=== PATIENT | male | born 1970 | race Caucasian/White ===

== ENCOUNTER 2017-03-27 14:38 | Inpatient (IN) | payer MEDICAID ==
[2017-03-27 15:20] LABS: Hematocrit 41 % (42-52); Hemoglobin 13.9 g/dl (14.0-18.0); Mean Corpuscular HGB Conc 34 g/dl (31-36); Mean Corpuscular Hemoglobin 31 pg (27-31); Mean Corpuscular Volume 92 fL (80-94); Mean Platelet Volume 8 um3 (7.4-10.4); Red Blood Count 4.48 10^6/ul (4.0-5.4); Red Cell Distribution Width 14 % (10.5-15); White Blood Count 8.3 10^3/ul (3.5-10.8)
[2017-03-27 15:36] LABS: ALT 22 U/L (7-52); AST 19 U/L (13-39); Alkaline Phosphatase 48 U/L (34-104); Anion Gap 5 mmol/L (2-11); BUN/Creatinine Ratio 17.2 (8-20); Blood Urea Nitrogen 15 mg/dL (6-24); CO2 Carbon Dioxide 29 mmol/L (22-32); Calcium 8.8 mg/dL (8.6-10.3); Chloride 103 mmol/L (101-111); EGFR African American 120.4 (>60); EGFR Non-African American 93.7 (>60); Globulin 2.8 g/dL (2-4); Glucose 135 mg/dL (70-100); Potassium 3.8 mmol/L (3.5-5.0); Sodium 137 mmol/L (133-145); Total Protein 6.8 g/dL (6.4-8.9)
[2017-03-27 16:04] LABS: Benzodiazepine Urine Screen None Detected (None Detect)
[2017-03-27 16:09] LABS: Acetaminophen < 15 mcg/mL; Alcohol < 10 mg/dL (<10); Salicylate < 2.50 mg/dL (<30)
[2017-03-27 16:10] LABS: TSH (Thyroid Stimulating Horm) 0.73 mcIU/mL (0.34-5.60)
[2017-03-27] MEDS ORDERED: Nicotine Inhaler* 10 MG AMP ONE (18:41)
[2017-03-27] MEDS ORDERED: Mouth Piece, Nicotine* 1 EACH CARTRIDGE ONE (18:41)
[2017-03-27] MEDS ORDERED: Nicotine Inhaler* 10 MG AMP INH ONE (18:44)
[2017-03-27] MEDS: Mouth Piece, Nicotine* 1 EACH CARTRIDGE INH ONE (18:44)
--- NOTE | 2017-03-27 22:01 | ED ---
Danii Aldirdge Alfonso, scribed for Jay Sanders MD on 03/27/17 at 1544 . Psychiatric Complaint - HPI Summary HPI Summary: This patient is a 46 year old M BIBA 9[facility] to [facility] with a chief complaint of SI since 4 days ago. He states I am feeling suicidal and depressed. When asked about previous attempts, he reports drinking bleach one month ago. He states that this time he would jump of a little shell tribe. The patient rates the pain 0/10 in severity. Symptoms aggravated by nothing. Symptoms alleviated by nothing. Patient reports SI and depression. - History Of Current Complaint Chief Complaint: EDMentalHealth Time Seen by Provider: 03/27/17 14:40 Hx Obtained From: Patient Onset/Duration: Sudden Onset, Lasting Days - 4, Still Present Timing: Constant Character: Depressed Aggravating Factor(s): Nothing Alleviating Factor(s): Nothing Has Suicidal: Reports: Thoughts, With A Plan, Has Prior Attempt(s) - Allergies/Home Medications Allergies/Adverse Reactions: Allergies Allergy/AdvReac Type Severity Reaction Status Date / Time No Known Allergies Allergy Verified 03/27/17 21:14 PMH/Surg Hx/FS Hx/Imm Hx Sensory History: Denies: Hx Deafness Opthamlomology History: Denies: Hx Legally Blind Infectious Disease History: No Infectious Disease History: Denies: Traveled Outside the [place] in Last 30 Days - Family History Known Family History: Positive: Cardiac Disease, Diabetes - Social History Alcohol Use: None Substance Use Type: Reports: None Smoking Status (MU): Current Every Day Smoker Review of Systems Negative: Fever Psychological: Other - SI and depression All Other Systems Reviewed And Are Negative: Yes Physical Exam Triage Information Reviewed: Yes Vital Signs On Initial Exam: Initial Vitals Temp Pulse Resp BP Pulse Ox 98.8 F 104 14 140/95 98 03/27/17 15:23 03/27/17 15:23 03/27/17 15:23 03/27/17 15:23 03/27/17 15:23 Vital Signs Reviewed: Yes Appearance: Positive: Well-Appearing, No Pain Distress Skin: Positive: Warm, Skin Color Reflects Adequate Perfusion, Dry Head/Face: Positive: Normal Head/Face Inspection Eyes: Positive: Normal ENT: Positive: Normal ENT inspection Neck: Positive: Supple, Nontender Respiratory/Lung Sounds: Positive: Clear to Auscultation, Breath Sounds Present Cardiovascular: Positive: RRR Abdomen Description: Positive: Nontender, Soft Bowel Sounds: Positive: Present Musculoskeletal: Positive: Normal Neurological: Positive: Normal, Sensory/Motor Intact, Alert, Oriented to Person Place, Time Psychiatric: Positive: Other - Flat affect. Blunted. - Hai Coma Scale Coma Scale Total: 15 Diagnostics - Vital Signs Vital Signs Temp Pulse Resp BP Pulse Ox 03/27/17 15:23 98.8 F 104 14 140/95 98 - Laboratory Lab Results: Lab Results 03/27/17 03/27/17 Range/Units 15:05 15:05 WBC 8.3 (3.5-10.8) 10^3/ul RBC 4.48 (4.0-5.4) 10^6/ul Hgb 13.9 L (14.0-18.0) g/dl Hct 41 L (42-52) % MCV 92 (80-94) fL MCH 31 (27-31) pg MCHC 34 (31-36) g/dl RDW 14 (10.5-15) % Plt Count 252 (150-450) 10^3/ul MPV 8 (7.4-10.4) um3 Neut % (Auto) 71.2 (38-83) % Lymph % (Auto) 19.2 L (25-47) % Darke % (Auto) 7.1 (1-9) % Eos % (Auto) 1.5 (0-6) % Baso % (Auto) 1.0 (0-2) % Absolute Neuts (auto) 5.9 (1.5-7.7) 10^3/ul Absolute Lymphs (auto) 1.6 (1.0-4.8) 10^3/ul Absolute Monos (auto) 0.6 (0-0.8) 10^3/ul Absolute Eos (auto) 0.1 (0-0.6) 10^3/ul Absolute Basos (auto) 0.1 (0-0.2) 10^3/ul Absolute Nucleated RBC 0 10^3/ul Nucleated RBC % 0 Sodium 137 (133-145) mmol/L Potassium 3.8 (3.5-5.0) mmol/L Chloride 103 (101-111) mmol/L Carbon Dioxide 29 (22-32) mmol/L Anion Gap 5 (2-11) mmol/L BUN 15 (6-24) mg/dL Creatinine 0.87 (0.67-1.17) mg/dL Est GFR ( Amer) 120.4 (>60) Est GFR (Non-Af Amer) 93.7 (>60) BUN/Creatinine Ratio 17.2 (8-20) Glucose 135 H (70-100) mg/dL Calcium 8.8 (8.6-10.3) mg/dL Total Bilirubin 0.30 (0.2-1.0) mg/dL AST 19 (13-39) U/L ALT 22 (7-52) U/L Alkaline Phosphatase 48 (34-104) U/L Total Protein 6.8 (6.4-8.9) g/dL Albumin 4.0 (3.2-5.2) g/dL Globulin 2.8 (2-4) g/dL Albumin/Globulin Ratio 1.4 (1-3) TSH Pending Salicylates Pending Acetaminophen Pending Serum Alcohol Pending Result Diagrams: 03/27/17 15:05 03/27/17 15:05 Lab Statement: Any lab studies that have been ordered have been reviewed, and results considered in the medical decision making process. Course/Dx - Course Course Of Treatment: Mr. Davis presented C/O depression and SI. He says he would jump in a little shell tribe. He has been medically cleared and is awaiting [facility]. - Differential Dx/Clinical Impression Provider Diagnosis: Depression, Suicidal ideation Discharge - Discharge Plan Condition: Stable Disposition: HOME The documentation as recorded by the Danii goldstein Alfonso accurately reflects the service I personally performed and the decisions made by me, Jay Sanders MD.
[2017-03-28] MEDS ORDERED: Al Hydrox/Mg Hydrox/Simet LIQ* 30 ML UDC PO PRN (03:54)
[2017-03-28] MEDS ORDERED: Acetaminophen TAB* 325 MG PO PRN (03:54)
[2017-03-28] MEDS ORDERED: Mouth Piece, Nicotine* 1 EACH CARTRIDGE INH ONE (04:00)
[2017-03-28] MEDS: Vitamin THERAPEUTIC TAB PO SCH (08:35)
--- NOTE | 2017-03-28 11:24 | PN ---
MHU: Group Therapy Note - Service Type Service Type: [id number] Group Psychotherapy - Cognitive Behavioral Group Therapy ( CBT):Patient was attentive and participatory in CBT programming this morning, and remained in good behavioral control. Patient expressed positive insights regarding relevant treatment interventions and goals.
[2017-03-28] MEDS: Nicotine Inhaler* 10 MG AMP INH PRN (12:10)
[2017-03-28] MEDS: Mouth Piece, Nicotine* 1 EACH CARTRIDGE INH ONE (12:10)
--- NOTE | 2017-03-28 12:53 | HP ---
H&P (Free Text) History and Physical: HPI: ---- Patient is a 46yo male with PPHx significant for MDD, R, S and recent suicide attempt by drinking bleach 2 months ago. Patient was recently discharged from [facility] psychiatric unit 2 weeks ago for depression and SI. Patient reports this recent episode of worsening mood and SI started after his discharge from [facility]. Patient reports once discharged back to his apartment, he reports his mood dropped. Patient identifies his living situation as triggering his depression. Patient reports he lives in a dilapidated apartment building in [place] where many of the tenants there use drugs and will knock on doors to beg for money/ food. Patient reports he resides there under a [facility] [facility] residential program. Patient reports he's been informed the building will be condemned on 04/09/17. He reports he has been working with a [facility] case investigator, Joan Altamirano, to find a new residence put it has been a slow process. He reports not being able to stand living in the building. Patient reports coming to [place], [place] 1 week ago to stay with a friend. He hopes to move his [facility] housing to the [facility]. Patient reports dwelling on his housing situation yesterday led to SI with plan to "jump off a [place]", prompting him to present to the [facility] building for safety. He reports [facility] called ambulance and police. Patient presented to the [facility] on 9.41 status. On interview today, patient reports no depressive symptoms. He reports he has not taken the antidepressant started at [facility] in over a week. Today he reports his mood as "I feel great". He though is depressed in affect. He reports fair appetite and sleep since discharge from [facility] 2 weeks ago. He reports no issues with memory, energy, or motivation. Of note, patient's only sibling, his brother, committed suicide in 2016 due to his issues with Heroin addiction. Patient reports no use of illicit substances, outside of rare use of cannabis, since the of his brother. Patient reports he drinks alcohol, mainly beer, 1-3 x/week. He reports only 1-2 beers per sitting. Patient reports hx of 4 total suicide attempts. He reports his last attempt occurred in January 2017 by means of drinking bleach. Patient reports his stressor was his ongoing grief over his brother's suicide. Patient reports no symptoms of psychosis, nor were any elicited on interview. Past Psych Hx: Inpt - Patient reports a total of 4 psychiatric hospitalizations. He reports his first was around age 28yo. Outpt - Patient scheduled to start with MH providers at [facility]. He reports he has not had his first appointment yet. Psychotropic med hx - Patient can not recall any antidepressant name, nor can he recall his discharge meds from [facility] in [place], [place]. Suicide attempt Hx / SIB Hx: -Patient reports hx of 4 total suicide attempts. He reports his last attempt occurred in January 2017 by means of drinking bleach. Patient reports his stressor was his ongoing grief over his brother's suicide. Trauma Hx: -Patient reports hx of significant bullying in school due to his intellectual disability. -Patient denies hx of physical or sexual abuse. Substance Hx: -Patient reports he drinks alcohol, mainly beer, 1-3 x/week. He reports only 1- 2 beers per sitting. -Patient reports use of Cannabis infrequently. He reports use 1-2 x/month. He reports his last use was 3 weeks ago. -Patient reports he has not used any other illicit substance since the of his brother by suicide. Patient reports his brother killed himself because of his addiction. He stated, "my brother is in heaven looking down at me, what would he think if I used drugs". Medical Hx: DENIES Allergies: --------- NKDA Family Hx: -Patient reports his brother dealt with IV Heroin addiction for years prior to his suicide. -Patient reports his brother is the only family member who has committed suicide. Social Hx: --------- -Patient born and raised in [place], [place] -Raised by mom and step-dad -Patient close with bio-dad who lives in [place], [place] -1 full sibling, a brother who committed suicide in 2016 due to Heroin addiction Patient reports he was very close to his brother -HLOE: 10th grade -Reports being in Special Education classes in school -Patient is currently unemployed -Patient reports longest job was with [employer]. He and his co-workers all laid off in 2009. -Patient lives in apartment in [place] under [employer] program. He reports the apartment building will be condemned in 04/2017. He does not want to return due to the rampant drug use of his neighbors. -Patient denies access to firearms -Patient denies having stores of old Rx pills LABS: ----- Laboratory Tests 03/27/17 03/27/17 03/27/17 15:05 15:05 15:17 WBC 8.3 RBC 4.48 Hgb 13.9 L Hct 41 L MCV 92 MCH 31 MCHC 34 RDW 14 Plt Count 252 MPV 8 Neut % (Auto) 71.2 Lymph % (Auto) 19.2 L [place] % (Auto) 7.1 Eos % (Auto) 1.5 Baso % (Auto) 1.0 Absolute Neuts (auto) 5.9 Absolute Lymphs (auto) 1.6 Absolute Monos (auto) 0.6 Absolute Eos (auto) 0.1 Absolute Basos (auto) 0.1 Absolute Nucleated RBC 0 Nucleated RBC % 0 Sodium 137 Potassium 3.8 Chloride 103 Carbon Dioxide 29 Anion Gap 5 BUN 15 Creatinine 0.87 Est GFR ( Amer) 120.4 Est GFR (Non-Af Amer) 93.7 BUN/Creatinine Ratio 17.2 Glucose 135 H Calcium 8.8 Total Bilirubin 0.30 AST 19 ALT 22 Alkaline Phosphatase 48 Total Protein 6.8 Albumin 4.0 Globulin 2.8 Albumin/Globulin Ratio 1.4 TSH 0.73 Salicylates < 2.50 Urine Opiates Screen None detected Acetaminophen < 15 Ur Barbiturates Screen None detected Ur Phencyclidine Scrn None detected Ur Amphetamines Screen None detected U Benzodiazepines Scrn None detected Urine Cocaine Screen None detected U Cannabinoids Screen Presumptive positive H Serum Alcohol < 10 PHYSICAL EXAM: GEN - in NAD, moderate build male, looks older than stated age HEENT - NC/AT, EOEMI, no lesions or discharge noted, conjunctivae clear NECK - supple, no JVD, no LAD, CARDIAC - S1/S2, no discernable murmurs ABD - (+) BS x 4 quad, non-tender EXT - no edema, no lesions MUSCULOSKEL - 5/5 muscle strength in all extremities SKIN - intact, no lesions NEURO - CN 2-12, steady gait MSE: ----- Appearance - moderate build male, fair hygeine, in NAD, looks older than stated age Behavior - calm, cooperative Speech - RVR, prosody wnl Eye Contact - good Mood - "I'm okay" Affect - depressed TP - linear and GD TC - focused on discharge Perception - no signs of psychosis noted or reported Orientation - A&Ox3 Cognition - intact Insight - poor Judgement - poor SI / HI - SI w/plan present on admission, currently denies both ASSESSMENT: 1. MDD, R, S w/o PFs 2. Intellectual developmental d/o PLAN: ------ 1. Continue admission to [facility] for safety and symptom mx. 2. Will start Celexa 20mg po qdaily for mood symptoms. 3. Continue compiling collateral information from family and outpt MH providers. 4. Patient to participate in milieu activities and groups.
[2017-03-29] MEDS: Citalopram TAB* 20 MG PO SCH (09:56)
[2017-03-29] MEDS: Vitamin THERAPEUTIC TAB PO SCH (09:57)
--- NOTE | 2017-03-29 10:20 | PN ---
Subjective - Subjective Service Type: 83662 Hosp care 15 min low complexity Subjective: Patient noted to be visible in the milieu, social and participating in groups. He reports his mood as "fine". He has been med compliant and denies med s/e's. Patient reports good sleep and appetite. Patient is linear in TP and requests discharge. Patient reports no SI/HI and AH/VH. Objective - Appearance Appearance: Well Developed/Nourished Dysmorphic Features: No Hygiene: Normal Grooming: Fairly Well Kept - Behavior Psychomotor Activities: Normal Exhibits Abnormal Movement: No - Attitude and Relatedness Attitude and Relatedness: Cooperative Eye Contact: Fair - Speech Quality: Unpressured Latencies: Normal Quantity: Appropriate - Mood Patient's Decription of Mood: "Fine" - Affect Observed Affect: Fair Affect Consistent with: Euthymia - Thought Process Patient's Thought Process: Coherent Thought Content: No Passive Wish, No Suicidal Planning, No Homicidal Ideation, No Paranoid Ideation - Sensorium Experiencing Hallucinations: No, Sensorium is Clear Type of Hallucinations: Visual: No, Auditory: No, Command: No - Level of Consciousness Level of Consciousness: Alert Orientation: Yes Intact, Yes Orientated to Time, Yes Orientated to Place, Yes Orientated to Person - Impulse Control Impulse Control: Intact - Insight and Judgement Insight and Judgement: Fair - Group Participation Particating in Group Activities: Yes - Medication Management Medication Management Adherence: Yes Assessment - Assessment Merits Inpatient Hospitalization: For Immediate Safety, For Stabilization Inpatient DSM-IV Dx: ASSESSMENT: . 1. MDD, R, S w/o PFs. 2. Intellectual developmental d/o Plan - Plan Treatment Plan: Name: NIRALI ALEX Birthdate: 1970 [id number] PLAN: ------ 1. Continue admission to [facility] for safety and symptom mx. 2. Continue Celexa 20mg po qdaily for mood symptoms. 3. Collateral information obtained from outpt MH providers. 4. Patient has signed LILIAM for [facility], the [facility], and his father Michael Alex #[phone]. 5. Patient to participate in milieu activities and groups. Continued Medication Management: Start Medication Medications: Current Medications Acetaminophen (Tylenol Tab*) 650 mg PO Q4H PRN PRN Reason: PAIN or TEMP > 101 F Al Hydrox/Mg Hydrox/Simethicone (Maalox Plus*) 30 ml PO Q4H PRN PRN Reason: INDIGESTION Citalopram Hydrobromide (Celexa Tab*) 20 mg PO DAILY [facility] Last Admin: 03/29/17 09:56 Dose: 20 mg Multivitamins (Theragran Tab*) 1 tab PO DAILY [facility] Last Admin: 03/29/17 09:57 Dose: 1 tab Nicotine (Nicotine Inhaler*) 10 mg INH Q2H PRN PRN Reason: CRAVING Last Admin: 03/28/17 12:10 Dose: 10 mg - Discharge Plan Outpatient Program: [facility]
--- NOTE | 2017-03-29 11:30 | PN ---
MHU: Group Therapy Note - Service Type Service Type: [id number] Group Psychotherapy - Cognitive Behavioral Group Therapy ( CBT):Patient was attentive and participatory in CBT programming this morning, and remained in good behavioral control. Patient expressed positive insights regarding relevant treatment interventions and goals.
[2017-03-30] MEDS: Citalopram TAB* 20 MG PO SCH (08:42)
[2017-03-30] MEDS: Vitamin THERAPEUTIC TAB PO SCH (08:43)
--- NOTE | 2017-03-30 15:01 | PN ---
Subjective - Subjective Service Type: 73058 Hosp care 15 min low complexity Subjective: Patient noted again today to be visible in the milieu, social and participating in groups. He reports his mood today as "good". He has been med compliant and denies med s/e's. Patient reports good sleep and appetite. Patient is linear in TP and again today requests discharge. Patient reports plan to return to his friends home. He reports he has removed all his belongings from his apartment in [place] prior to the building being condemned on 04/09/17. Patient reports desire to return to the [facility]' residence. He reports he will continue pursing new DSS placement with his oupt DSS case hardener. Patient reports no SI/HI and AH /VH. Objective - Appearance Appearance: Well Developed/Nourished Dysmorphic Features: No Hygiene: Normal Grooming: Well Kept - Behavior Psychomotor Activities: Normal Exhibits Abnormal Movement: No - Attitude and Relatedness Attitude and Relatedness: Cooperative Eye Contact: Good - Speech Quality: Unpressured Latencies: Normal Quantity: Appropriate - Mood Patient's Decription of Mood: "Good" - Affect Observed Affect: Fair Affect Consistent with: Euthymia - Thought Process Patient's Thought Process: Coherent Thought Content: No Passive Wish, No Suicidal Planning, No Homicidal Ideation, No Paranoid Ideation - Sensorium Experiencing Hallucinations: No, Sensorium is Clear Type of Hallucinations: Visual: No, Auditory: No, Command: No - Level of Consciousness Level of Consciousness: Alert Orientation: Yes Intact, Yes Orientated to Time, Yes Orientated to Place, Yes Orientated to Person - Impulse Control Impulse Control: Intact - Insight and Judgement Insight and Judgement: Fair - Group Participation Particating in Group Activities: Yes - Medication Management Medication Management Adherence: Yes Assessment - Assessment Merits Inpatient Hospitalization: For Immediate Safety, For Stabilization Inpatient DSM-IV Dx: ASSESSMENT: . 1. MDD, R, S w/o PFs. 2. Intellectual developmental d/o Plan - Plan Treatment Plan: Name: NIRALI ALEX Birthdate: 1970 [id number] PLAN: ------ 1. Continue admission to [facility] for safety and symptom mx. 2. Continue Celexa 20mg po qdaily for mood symptoms. 3. Collateral information compiled from family and [facility] provider. 4. Discharge planning, tentative D/C tomorrow. 5. Patient to participate in milieu activities and groups. Medications: Current Medications Acetaminophen (Tylenol Tab*) 650 mg PO Q4H PRN PRN Reason: PAIN or TEMP > 101 F Al Hydrox/Mg Hydrox/Simethicone (Maalox Plus*) 30 ml PO Q4H PRN PRN Reason: INDIGESTION Citalopram Hydrobromide (Celexa Tab*) 20 mg PO DAILY [facility] Last Admin: 03/30/17 08:42 Dose: 20 mg Multivitamins (Theragran Tab*) 1 tab PO DAILY [facility] Last Admin: 03/30/17 08:43 Dose: Not Given Nicotine (Nicotine Inhaler*) 10 mg INH Q2H PRN PRN Reason: CRAVING Last Admin: 03/28/17 12:10 Dose: 10 mg - Discharge Plan Outpatient Program: [facility]
[2017-03-30] MEDS: Nicotine Inhaler* 10 MG AMP INH PRN (19:53)
[2017-03-31 07:45] VITALS: BP 140/86
[2017-03-31] MEDS: Citalopram TAB* 20 MG PO SCH (09:14)
[2017-03-31] MEDS: Vitamin THERAPEUTIC TAB PO SCH (09:15)
--- NOTE | 2017-03-31 12:05 | DS ---
Subjective - Subjective Service Types: [id number] [facility] Day Mgmt simple under 30 min Subjective: Patient noted again today to be visible in the milieu, social and participating in groups. He reports his mood again today as "good". He has been med compliant and denies med s/e's. Patient reports good sleep and appetite. Patient reports feeling ready for discharge. Patient is full in affect and displays no PMR. His TP linear and GD and his TC is future oriented. Patient reports plan to return to his friends home. He reports he has removed all his belongings from his apartment in [place] prior to the building being condemned on 04/09/17. Patient reports his plan to return to the [facility]' residence when they have a bed available and reports he will continue pursing new DSS placement with his oupt DSS medical case worker. Patient reports no SI/HI and AH/VH. Patient will be discharged. Objective - Appearance Appearance: Well Developed/Nourished Dysmorphic Features: No Hygiene: Normal Grooming: Fairly Well Kept - Behavior Psychomotor Activities: Normal Exhibits Abnormal Movement: No - Attitude and Relatedness Attitude and Relatedness: Cooperative Eye Contact: Good - Speech Quality: Unpressured Latencies: Normal Quantity: Appropriate - Mood Patient's Decription of Mood: "Good" - Affect Observed Affect: Good Affect Consistent with: Euthymia - Thought Process Patient's Thought Process: Coherent Thought Content: No Passive Wish, No Suicidal Planning, No Homicidal Ideation, No Paranoid Ideation - Sensorium Experiencing Hallucinations: No, Sensorium is Clear Type of Hallucinations: Visual: No, Auditory: No, Command: No - Level of Consciousness Level of Consciousness: Alert Orientation: Yes Intact, Yes Orientated to Time, Yes Orientated to Place, Yes Orientated to Person - Impulse Control Impulse Control: Intact - Insight and Judgement Insight and Judgement: Fair - Group Participation Particating in Group Activities: Yes - Medication Management Medication Management Adherence: Yes Treatment Course & Assessment Clinical Course & Impression: HOSPITAL COURSE: Patient is a 46yo male with PPHx significant for MDD, R, S and recent suicide attempt by drinking bleach 2 months ago. Patient was recently discharged from [facility] psychiatric unit 2 weeks ago for depression and SI. Patient reports this recent episode of worsening mood and SI started after his discharge from [facility]. Patient reports once discharged back to his apartment, he reports his mood dropped. Patient identifies his living situation as triggering his depression. Patient reports he lives in a dilapidated apartment building in [place] where many of the tenants there use drugs and will knock on doors to beg for money/ food. Patient reports he resides there under a [facility] residential program. Patient reports he's been informed the building will be condemned on 04/09/17. He reports he has been working with a [facility] medical case worker, Joan Altamirano, to find a new residence put it has been a slow process. He reports not being able to stand living in the building. Patient reports coming to [place], [place] 1 week ago to stay with a friend. He hopes to move his [facility] housing to the [place] area. Patient reports dwelling on his housing situation yesterday led to SI with plan to "jump off a nenana", prompting him to present to the [facility] building for safety. He reports [facility] called ambulance and police. Patient presented to the [facility] on status. On interview today, patient reports no depressive symptoms. He reports he has not taken the antidepressant started at [facility] in over a week. Today he reports his mood as "I feel great". He though is depressed in affect. He reports fair appetite and sleep since discharge from [facility] 2 weeks ago. He reports no issues with memory, energy, or motivation. Of note, patient's only sibling, his brother, committed suicide in 2016 due to his issues with Heroin addiction. Patient reports no use of illicit substances, outside of rare use of cannabis, since the of his brother. Patient reports he drinks alcohol, mainly beer, 1-3 x/week. He reports only 1-2 beers per sitting. Patient reports hx of 4 total suicide attempts. He reports his last attempt occurred in January 2017 by means of drinking bleach. Patient reports his stressor was his ongoing grief over his brother's suicide. Patient reports no symptoms of psychosis, nor were any elicited on interview. On admission, patient gave informed consent to start Celexa at 20mg po daily. He reported 2 weeks since last taking his antidepressent Rx'd at [facility]. Patient noted to be visible in the milieu, pleasant, social with peers and attending groups. He reported daily benefit from this admission. Patient was med compliant and denied med s/e's. Patient reports feeling ready for discharge. Patient is A&Ox4, linear and GD in TP, and future oriented in TC. Patient desire to reenter the [facility] residence but will continue working on a new [facility] residence with his outpt DSS case mx. Patient again denies SI/HI and AH/VH. Patient is psychiatrically stable. Discharge plan has been discussed and patient is amenable and acknowledges understanding. Patient instructed to call the crisis hotline, 911, or self present to a local ED if SIs recurs. Patient was amenable and acknowledged understanding of his community supports. Patient will be discharged to his friend's home. PERTINENT LABS: Laboratory Tests 03/27/17 03/27/17 03/27/17 15:05 15:05 15:17 WBC 8.3 RBC 4.48 Hgb 13.9 L Hct 41 L MCV 92 MCH 31 MCHC 34 RDW 14 Plt Count 252 MPV 8 Neut % (Auto) 71.2 Lymph % (Auto) 19.2 L [place] % (Auto) 7.1 Eos % (Auto) 1.5 Baso % (Auto) 1.0 Absolute Neuts (auto) 5.9 Absolute Lymphs (auto) 1.6 Absolute Monos (auto) 0.6 Absolute Eos (auto) 0.1 Absolute Basos (auto) 0.1 Absolute Nucleated RBC 0 Nucleated RBC % 0 Sodium 137 Potassium 3.8 Chloride 103 Carbon Dioxide 29 Anion Gap 5 BUN 15 Creatinine 0.87 Est GFR ( Amer) 120.4 Est GFR (Non-Af Amer) 93.7 BUN/Creatinine Ratio 17.2 Glucose 135 H Calcium 8.8 Total Bilirubin 0.30 AST 19 ALT 22 Alkaline Phosphatase 48 Total Protein 6.8 Albumin 4.0 Globulin 2.8 Albumin/Globulin Ratio 1.4 TSH 0.73 Salicylates < 2.50 Urine Opiates Screen None detected Acetaminophen < 15 Ur Barbiturates Screen None detected Ur Phencyclidine Scrn None detected Ur Amphetamines Screen None detected U Benzodiazepines Scrn None detected Urine Cocaine Screen None detected U Cannabinoids Screen Presumptive positive H Serum Alcohol < 10 Consultants: None Discharge Meds: Home Medications Medication Instructions Recorded Confirmed Type Citalopram TAB* [Celexa TAB*] 20 mg PO DAILY #30 tab 03/31/17 Rx Vitamin THERAPEUTIC TAB* 1 tab PO DAILY #30 tab 03/31/17 Rx [Theragran TAB*] Follow-Up: Appt. for within the next 2 weeks scheduled by SW with [facility] provider. Merits Inpatient Hospitalization: Yes Clear for Discharge: Adequate Clinical Respons, Low Utility of Inpt Care Inpatient DSM-IV Dx: ASSESSMENT: . 1. MDD, R, S w/o PFs. 2. Intellectual developmental d/o Discharge Planning - Discharge Planning Discharge Plan: Outpatient Follow Up Outpatient Program: [facility] Recommendations for Continuing Care: Medication Management Medications: Current Medications Acetaminophen (Tylenol Tab*) 650 mg PO Q4H PRN PRN Reason: PAIN or TEMP > 101 F Al Hydrox/Mg Hydrox/Simethicone (Maalox Plus*) 30 ml PO Q4H PRN PRN Reason: INDIGESTION Citalopram Hydrobromide (Celexa Tab*) 20 mg PO DAILY [facility] Last Admin: 03/31/17 09:14 Dose: 20 mg Multivitamins (Theragran Tab*) 1 tab PO DAILY [facility] Last Admin: 03/31/17 09:15 Dose: Not Given Nicotine (Nicotine Inhaler*) 10 mg INH Q2H PRN PRN Reason: CRAVING Last Admin: 03/30/17 19:53 Dose: 10 mg Discharge Planning: Prescriptions provided for discharge [x] Yes [] No Follow up care details as per social work arrangements. Patient response to discharge plan: [] eager for discharge [x] agreeable with discharge plan [] ambivalent about discharge [] disagrees with discharge today
--- NOTE | 2017-03-31 13:59 | PN ---
MHU: Group Therapy Note - Service Type Service Type: 31602 Group Psychotherapy - Cognitive Behavioral Group Therapy ( CBT):Patient was attentive and participatory in CBT programming this morning, and remained in good behavioral control. Patient expressed positive insights regarding relevant treatment interventions and goals.
== END 2017-03-31 13:35 | disposition home or self-care (01) | DRG 751 ==
LOC: ED 14:38 → BSU 03-28 03:14
PROVIDERS: ADMIT Psychiatry & Neurology Psychiatry; ATTEND Psychiatry & Neurology Psychiatry
PROC: GZHZZZZ Group Psychotherapy (ICD-10-PCS; principal; 2017-03-28)
DX: F33.2 Major depressive disorder, recurrent severe without psychotic features (principal); F17.200 Nicotine dependence, unspecified, uncomplicated; F88 Other disorders of psychological development; Z72.89 Other problems related to lifestyle; Z56.0 Unemployment, unspecified
CPT/HCPCS: 36415; 80053; 80307; 80320; 80329; 84443; 85025; 90853; 99222; 99231; 99238; A9270-GY; G0480

== ENCOUNTER 2017-05-24 16:05 | Inpatient (IN) | payer MEDICAID ==
[2017-05-24 17:07] LABS: Urine Bacteria Absent (Absent); Urine Bilirubin Negative (Negative); Urine Glucose Negative (Negative); Urine Nitrite Negative (Negative)
[2017-05-24 17:16] LABS: Hematocrit 46 % (42-52); Hemoglobin 15.4 g/dl (14.0-18.0); Mean Corpuscular HGB Conc 34 g/dl (31-36); Mean Corpuscular Hemoglobin 32 pg (27-31); Mean Corpuscular Volume 94 fL (80-94); Mean Platelet Volume 8 um3 (7.4-10.4); Red Blood Count 4.88 10^6/ul (4.0-5.4); Red Cell Distribution Width 14 % (10.5-15); White Blood Count 11.6 10^3/ul (3.5-10.8)
[2017-05-24 17:20] LABS: Benzodiazepine Urine Screen None Detected (None Detect)
[2017-05-24 17:29] LABS: ALT 14 U/L (7-52); AST 17 U/L (13-39); Alkaline Phosphatase 41 U/L (34-104); Anion Gap 5 mmol/L (2-11); BUN/Creatinine Ratio 12.9 (8-20); Blood Urea Nitrogen 12 mg/dL (6-24); CO2 Carbon Dioxide 28 mmol/L (22-32); Calcium 8.9 mg/dL (8.6-10.3); Chloride 102 mmol/L (101-111); EGFR African American 111.5 (>60); EGFR Non-African American 86.7 (>60); Globulin 2.8 g/dL (2-4); Glucose 130 mg/dL (70-100); Potassium 3.5 mmol/L (3.5-5.0); Sodium 135 mmol/L (133-145); Total Protein 6.8 g/dL (6.4-8.9)
[2017-05-24 17:52] LABS: Acetaminophen < 15 mcg/mL; Alcohol < 10 mg/dL (<10); Salicylate < 2.50 mg/dL (<30)
--- NOTE | 2017-05-24 21:46 | ED ---
De Aldridge Nilda, scribed for Rizwan Cortez MD on 05/24/17 at 1720 . Psychiatric Complaint - HPI Summary HPI Summary: This patient is a 46 year old M BIBA to [facility] with a chief complaint of SI with a plan for the past 4-5 days. Plans include jumping from bridge or throwing himself in front of traffic. Symptoms aggravated by recent stressor (break up) and alleviated by nothing. He states he has had previous suicide attempts ( overdose on bleach, try to hang self). Patient also reports dental pain. - History Of Current Complaint Chief Complaint: EDMentalHealth Time Seen by Provider: 05/24/17 16:37 Hx Obtained From: Patient Onset/Duration: Sudden Onset, Lasting Days - 4-5 days, Still Present Character: Depressed Aggravating Factor(s): Recent Stress Alleviating Factor(s): Nothing Related History: Positive For: Prior Psychiatric Issues Has Suicidal: Reports: With A Plan - Allergies/Home Medications Allergies/Adverse Reactions: Allergies Allergy/AdvReac Type Severity Reaction Status Date / Time No Known Allergies Allergy Verified 03/27/17 21:14 PMH/Surg Hx/FS Hx/Imm Hx Sensory History: Denies: Hx Contacts or Glasses, Hx Legally Blind, Hx Deafness, Hx Hearing Aid Opthamlomology History: Denies: Hx Contacts or Glasses, Hx Legally Blind Psychiatric History: Reports: Hx Attention Deficit Hyperactivity Disorder, Hx Depression, Hx Inpatient Treatment, Hx Community Mental Health Tx, Hx Bipolar Disorder, Hx Suicide Attempt Denies: Hx Eating Disorder, Hx of Violent Episodes Against Others Infectious Disease History: No Infectious Disease History: Denies: Traveled Outside the [place] in Last 30 Days - Family History Known Family History: Positive: Cardiac Disease, Diabetes - Social History Occupation: Unemployed Alcohol Use: None Substance Use Type: Reports: None, Marijuana Smoking Status (MU): Current Every Day Smoker Type: Cigarettes Amount Used/How Often: smokes 1/2 pack per day Review of Systems Positive: Dental Pain Positive: Depressed, Other - SI with a plan All Other Systems Reviewed And Are Negative: Yes Physical Exam Triage Information Reviewed: Yes Vital Signs On Initial Exam: Initial Vitals Temp Pulse Resp BP Pulse Ox 99.8 F 97 18 147/87 96 05/24/17 16:08 05/24/17 16:08 05/24/17 16:08 05/24/17 16:08 05/24/17 16:08 Vital Signs Reviewed: Yes Appearance: Positive: Well-Appearing, No Pain Distress Skin: Positive: Warm Head/Face: Positive: Normal Head/Face Inspection Eyes: Positive: EOMI, JULISSA Neck: Positive: Nontender, No Lymphadenopathy Respiratory/Lung Sounds: Positive: Clear to Auscultation, Breath Sounds Present Cardiovascular: Positive: RRR. Negative: Murmur Abdomen Description: Positive: Nontender Musculoskeletal: Positive: Strength/ROM Intact Neurological: Positive: Sensory/Motor Intact, Alert, Oriented to Person Place, Time, CN Intact II-III Psychiatric: Positive: Depressed, Other - expresses a plan to end his life by jumping in traffic and jump off bridge. - Hai Coma Scale Coma Scale Total: 15 Diagnostics - Vital Signs Vital Signs Temp Pulse Resp BP Pulse Ox 05/24/17 16:08 99.8 F 97 18 147/87 96 - Laboratory Lab Results: Lab Results 05/24/17 Range/Units 16:35 Urine Color Yellow Urine Appearance Clear Urine pH 6.0 (5-9) Ur Specific [place] 1.021 (1.010-1.030) Urine Protein Negative (Negative) Urine Ketones Trace H (Negative) Urine Blood 1+ H (Negative) Urine Nitrate Negative (Negative) Urine Bilirubin Negative (Negative) Urine Urobilinogen Positive H (Negative) Ur Leukocyte Esterase Negative (Negative) Urine WBC (Auto) Trace(0-5/hpf) (Absent) Urine RBC (Auto) 3+(>10/hpf) H (Absent) Urine Bacteria Absent (Absent) Urine Glucose Negative (Negative) Result Diagrams: 05/24/17 17:05 05/24/17 17:05 Lab Statement: Any lab studies that have been ordered have been reviewed, and results considered in the medical decision making process. - EKG 1715 Cardiac Rate: NL EKG Rhythm: Sinus Rhythm - 84 bpm EKG Interpretation: nl NJ, QRS, and QT; no STEMI Course/Dx - Course Assessment/Plan: This patient is a 46 year old M BIBA to [facility] with a chief complaint of SI with a plan for the past 4-5 days. Plans include jumping from bridge or throwing himself in front of traffic. Symptoms aggravated by recent stressor (break up) and alleviated by nothing. He states he has had previous suicide attempts (overdose on bleach, try to hang self). Patient also reports dental pain. Pending labs and EKG. EKG reveals NSR, 84 bpm, nl NJ, QRS, and QT ; no STEMI. [1813] medically cleared for MHE. S/o pending shift change, awaiting MHE. - Differential Dx/Clinical Impression Provider Diagnosis: Suicidal ideation, Depression Discharge - Discharge Plan Condition: Good Disposition: OTHER Discharge Disposition Comment: sign out at shift change to Dr Del Toro 2200, awaiting MHE Referrals: No Primary Care Phys,NOPCP [Primary Care Provider] - The documentation as recorded by the De goldstein Nilda accurately reflects the service I personally performed and the decisions made by me, Rizwan Cortez MD.
[2017-05-25] MEDS ORDERED: Nicotine Inhaler* 10 MG AMP INH PRN (06:29)
[2017-05-25] MEDS ORDERED: Acetaminophen TAB* 325 MG PO PRN (06:29)
[2017-05-25] MEDS ORDERED: Nicotine GUM* 2 MG PO PRN (06:29)
[2017-05-25] MEDS ORDERED: Al Hydrox/Mg Hydrox/Simet LIQ* 30 ML UDC PO PRN (06:29)
[2017-05-25] MEDS ORDERED: Mouth Piece, Nicotine* 1 EACH CARTRIDGE INH ONE (07:00)
[2017-05-25] MEDS: Vitamin THERAPEUTIC TAB PO SCH (10:20)
--- NOTE | 2017-05-25 14:02 | HP ---
H&P (Free Text) History and Physical: HPI: ---- Patient is a 46yo male with PPHx significant for MDD, R, S and Intellectual developmental d/o who presents to the [facility], [facility] from [facility], reporting 4-5 days of worsening depressive symptoms and SI w/plan to jump from a bridge. Patient reports this recent episode of worsening mood and SI started after he and his GF broke up 1.5 weeks ago. He reports he has been living with this woman and her children since his discharge from here in 03/2017. Patient reports he is now homeless. Patient was discharged from [facility] 03/2017 with similiar presentation reporting a stressor induced acute depression and SI. On interview, patient is linear in TP but is depressed in affect and manner. He displays PMR. Patient reports 1.5 weeks of significantly depressed mood, apathy , lonliness, anhedonia and feelings of hopelessness, helplessness, and worthlessness. Patient requests discharge upon initiation of this interview. Patient though decides to continue his admission to and evaluate 24hrs after initiation of an antidepressant. Patient reports he has been med non-compliant since his discharge in 03/2017. Patient reports no use of illicit substances, outside of rare use of cannabis. He continues to be sober from drus since the of his brother by drug OD. Patient reports no alcohol since discharge. Patient reports hx of 4 total suicide attempts. He reports his last attempt occurred in January 2017 by means of drinking bleach. Patient reports his stressor was his ongoing grief over his brother's suicide. Patient reports no symptoms of psychosis, nor were any elicited on interview. He hopes upon discharge to go immediately to [facility] for information on housing opportunities for him. Past Psych Hx: Inpt - Patient reports a total of 4 psychiatric hospitalizations. He reports his first was around age 28yo. Outpt - Patient scheduled to start with MH providers at [facility]. He reports he has not had his first appointment yet. Psychotropic med hx - Patient can not recall any antidepressant name, nor can he recall his discharge meds from [facility] in [place], [place]. Suicide attempt Hx / SIB Hx: -Patient reports hx of 4 total suicide attempts. He reports his last attempt occurred in January 2017 by means of drinking bleach. Patient reports his stressor was his ongoing grief over his brother's suicide. Trauma Hx: -Patient reports hx of significant bullying in school due to his intellectual disability. -Patient denies hx of physical or sexual abuse. Substance Hx: -Patient reports no use of alcohol since 03/2017 [facility] discharge. -Patient reports use of Cannabis infrequently. He reports use 1-2 x/month. He reports his last use was 2 days ago. -Patient reports he has not used any other illicit substance since the of his brother by suicide. Patient reports his brother killed himself because of his addiction. He stated, "my brother is in heaven looking down at me, what would he think if I used drugs". Medical Hx: DENIES Allergies: --------- NKDA Family Hx: -Patient reports his brother dealt with IV Heroin addiction for years prior to his suicide. -Patient reports his brother is the only family member who has committed suicide. Social Hx: --------- -Patient born and raised in [place], [place] -Raised by mom and step-dad -Patient close with bio-dad who lives in [place], [place] -1 full sibling, a brother who committed suicide in 2016 due to Heroin addiction Patient reports he was very close to his brother -HLOE: 10th grade -Reports being in Special Education classes in school -Patient is currently unemployed -Patient reports longest job was with [employer]. He and his co-workers all laid off in 2009. -Patient has been living with a GF, but is now homeless since the break-up. -Patient denies access to firearms -Patient denies having stores of old Rx pills Home medications: Home Medications Medication Instructions Recorded Confirmed Type Citalopram TAB* [Celexa TAB*] 20 mg PO DAILY #30 tab 03/31/17 Rx Vitamin THERAPEUTIC TAB* 1 tab PO DAILY #30 tab 09/22/17 Rx [Theragran TAB*] VITAL SIGNS: Vital Signs (72 hours) 05/24/17 05/25/17 05/25/17 16:08 05:59 06:23 Temperature 99.8 F 97.9 F 97.8 F Pulse Rate 97 76 76 Respiratory 18 16 16 Rate Blood Pressure 147/87 138/75 137/75 (mmHg) O2 Sat by Pulse 96 98 98 Oximetry 05/25/17 05/25/17 05/25/17 07:24 09:51 09:55 Temperature 98.8 F Pulse Rate 78 Respiratory 16 16 16 Rate Blood Pressure 108/62 (mmHg) O2 Sat by Pulse 95 Oximetry LABS: -------- Laboratory Tests 05/24/17 05/24/17 05/24/17 16:35 16:35 17:05 WBC RBC Hgb Hct MCV MCH MCHC RDW Plt Count MPV Neut % (Auto) Lymph % (Auto) [place] % (Auto) Eos % (Auto) Baso % (Auto) Absolute Neuts (auto) Absolute Lymphs (auto) Absolute Monos (auto) Absolute Eos (auto) Absolute Basos (auto) Absolute Nucleated RBC Nucleated RBC % Sodium 135 Potassium 3.5 Chloride 102 Carbon Dioxide 28 Anion Gap 5 BUN 12 Creatinine 0.93 Est GFR ( Amer) 111.5 Est GFR (Non-Af Amer) 86.7 BUN/Creatinine Ratio 12.9 Glucose 130 H Calcium 8.9 Total Bilirubin 0.40 AST 17 ALT 14 Alkaline Phosphatase 41 Total Protein 6.8 Albumin 4.0 Globulin 2.8 Albumin/Globulin Ratio 1.4 TSH 0.40 Urine Color Yellow Urine Appearance Clear Urine pH 6.0 Ur Specific [place] 1.021 Urine Protein Negative Urine Ketones Trace H Urine Blood 1+ H Urine Nitrate Negative Urine Bilirubin Negative Urine Urobilinogen Positive H Ur Leukocyte Esterase Negative Urine WBC (Auto) Trace(0-5/hpf) Urine RBC (Auto) 3+(>10/hpf) H Urine Bacteria Absent Urine Glucose Negative Salicylates < 2.50 Urine Opiates Screen None detected Acetaminophen < 15 Ur Barbiturates Screen None detected Ur Phencyclidine Scrn None detected Ur Amphetamines Screen None detected U Benzodiazepines Scrn None detected Urine Cocaine Screen None detected U Cannabinoids Screen Presumptive positive H Serum Alcohol < 10 05/24/17 17:05 WBC 11.6 H RBC 4.88 Hgb 15.4 Hct 46 MCV 94 MCH 32 H MCHC 34 RDW 14 Plt Count 237 MPV 8 Neut % (Auto) 77.7 Lymph % (Auto) 14.2 L [place] % (Auto) 6.9 Eos % (Auto) 0.6 Baso % (Auto) 0.6 Absolute Neuts (auto) 9.0 H Absolute Lymphs (auto) 1.7 Absolute Monos (auto) 0.8 Absolute Eos (auto) 0.1 Absolute Basos (auto) 0.1 Absolute Nucleated RBC 0 Nucleated RBC % 0 Sodium Potassium Chloride Carbon Dioxide Anion Gap BUN Creatinine Est GFR ( Amer) Est GFR (Non-Af Amer) BUN/Creatinine Ratio Glucose Calcium Total Bilirubin AST ALT Alkaline Phosphatase Total Protein Albumin Globulin Albumin/Globulin Ratio TSH Urine Color Urine Appearance Urine pH Ur Specific [place] Urine Protein Urine Ketones Urine Blood Urine Nitrate Urine Bilirubin Urine Urobilinogen Ur Leukocyte Esterase Urine WBC (Auto) Urine RBC (Auto) Urine Bacteria Urine Glucose Salicylates Urine Opiates Screen Acetaminophen Ur Barbiturates Screen Ur Phencyclidine Scrn Ur Amphetamines Screen U Benzodiazepines Scrn Urine Cocaine Screen U Cannabinoids Screen Serum Alcohol PHYSICAL EXAM: GEN - in NAD, moderate build male, looks older than stated age HEENT - NC/AT, EOEMI, no lesions or discharge noted, conjunctivae clear NECK - supple, no JVD, no LAD CARDIAC - S1/S2, no discernable murmurs ABD - (+) BS x 4 quad, non-tender EXT - no edema, no lesions MUSCULOSKEL - 5/5 muscle strength in all extremities SKIN - intact, no lesions NEURO - CN 2-12, steady gait MSE: ----- Appearance - moderate build male, fair hygeine, in NAD, looks older than stated age Behavior - calm, cooperative Speech - RVR, prosody wnl Eye Contact - good Mood - "I'm ready for discharge" Affect - depressed TP - linear and GD TC - focused on discharge Perception - no signs of psychosis noted or reported Orientation - A&Ox3 Cognition - intact Insight - poor Judgement - poor SI / HI - SI present on admission, currently denies both ASSESSMENT: 1. MDD, R, S w/o PFs 2. Intellectual developmental d/o PLAN: ------- 1. Continue admission to [facility] for safety and symptom mx. 2. Will start Effexor 75mg po qdaily for depressive symptoms. 3. Continue compiling collateral information from outpt MH providers. Patient does not allow LILIAM for ex-GF he's been living with. 4. Patient to participate in milieu activities and groups.
--- NOTE | 2017-05-25 14:18 | ED ---
Danii Aldridge Alfonso, scribed for Amy Del Toro MD on 05/25/17 at 0240 . Progress - Progress Note Progress Note: This patient was signed out from Dr. Cortez, pending disposition, awaiting MHE after voicing suicidal ideation with a plan to jump off a bridge or run into traffic. The patients condition is deemed, per Dr. Butler (psychiatrist content creation manager , per [facility] psychiatric plaster block layer), stable and he will be admitted voluntarily to [facility] with Dx of unspecified depressive disorder. - Consult/PCP Time Called: 00:47 Course/Dx - Diagnoses Provider Diagnoses: Depressive disorder The documentation as recorded by the Danii goldstein Alfonso accurately reflects the service I personally performed and the decisions made by , Amy Del Toro MD.
[2017-05-25] MEDS: Venlafaxine EXT RELEASE CAP* 75 MG PO SCH (15:40)
[2017-05-26] MEDS: Vitamin THERAPEUTIC TAB PO SCH (07:59)
[2017-05-26] MEDS: Venlafaxine EXT RELEASE CAP* 75 MG PO SCH (10:07)
[2017-05-26 10:43] VITALS: BP 131/91
--- NOTE | 2017-05-29 02:47 | DS ---
Subjective - Subjective Service Types: 00992 Hosp HI Day Mgmt simple under 30 min Subjective: Patient noted to be visible most of the day in the milieu, pleasant, social with peers and attending groups. Patient denied med s/e's. Patient again denied SI/HI and AH/VH. Patient is psychiatrically stable. Discharge plan has been discussed and patient. Patient instructed to call the crisis hotline, 911, or self present to a local ED if SI recurs. Objective - Appearance Appearance: Well Developed/Nourished Dysmorphic Features: No Hygiene: Normal Grooming: Well Kept - Behavior Psychomotor Activities: Normal Exhibits Abnormal Movement: No - Attitude and Relatedness Attitude and Relatedness: Cooperative - Affect Observed Affect: Fair Affect Consistent with: Euthymia - Thought Process Patient's Thought Process: Coherent - Sensorium Experiencing Hallucinations: No, Sensorium is Clear Type of Hallucinations: Visual: No, Auditory: No, Command: No - Level of Consciousness Level of Consciousness: Alert - Impulse Control Impulse Control: Intact - Group Participation Particating in Group Activities: Yes - Medication Management Medication Management Adherence: Yes Treatment Course & Assessment Clinical Course & Impression: HOSPITAL COURSE: Patient is a 46yo male with PPHx significant for MDD, R, S and Intellectual developmental d/o who presents to the [facility] from [facility], reporting 4-5 days of worsening depressive symptoms and SI w/plan to jump from a bridge. Patient reports this recent episode of worsening mood and SI started after he and his GF broke up 1.5 weeks ago. He reports he has been living with this woman and her children since his discharge from here in 03/2017. Patient reports he is now homeless. Patient was discharged from [facility] 03/2017 with similiar presentation reporting a stressor induced acute depression and SI. On interview, patient is linear in TP but is depressed in affect and manner. He displays PMR. Patient reports 1.5 weeks of significantly depressed mood, apathy , lonliness, anhedonia and feelings of hopelessness, helplessness, and worthlessness. Patient requests discharge upon initiation of this interview. Patient though decides to continue his admission to and evaluate 24hrs after initiation of an antidepressant. Patient reports he has been med non-compliant since his discharge in 03/2017. Patient reports no use of illicit substances, outside of rare use of cannabis. He continues to be sober from drus since the of his brother by drug OD. Patient reports no alcohol since discharge. Patient reports hx of 4 total suicide attempts. He reports his last attempt occurred in January 2017 by means of drinking bleach. Patient reports his stressor was his ongoing grief over his brother's suicide. Patient reports no symptoms of psychosis, nor were any elicited on interview. He hopes upon discharge to go immediately to [facility] for information on housing opportunities for him. Started Effexor 75mg po qdaily for depressive symptoms. Patient noted to be visible most of the day in the milieu, pleasant, social with peers and attending groups. Patient denied med s/e's. Patient again denied SI/HI and AH/VH. Patient is psychiatrically stable. Discharge plan has been discussed and patient. Patient instructed to call the crisis hotline, [employer], or self present to a local ED if SI recurs. PERTINENT LABS: Laboratory Tests 05/24/17 05/24/17 05/24/17 16:35 16:35 17:05 WBC RBC Hgb Hct MCV MCH MCHC RDW Plt Count MPV Neut % (Auto) Lymph % (Auto) [place] % (Auto) Eos % (Auto) Baso % (Auto) Absolute Neuts (auto) Absolute Lymphs (auto) Absolute Monos (auto) Absolute Eos (auto) Absolute Basos (auto) Absolute Nucleated RBC Nucleated RBC % Sodium 135 Potassium 3.5 Chloride 102 Carbon Dioxide 28 Anion Gap 5 BUN 12 Creatinine 0.93 Est GFR ( Amer) 111.5 Est GFR (Non-Af Amer) 86.7 BUN/Creatinine Ratio 12.9 Glucose 130 H Calcium 8.9 Total Bilirubin 0.40 AST 17 ALT 14 Alkaline Phosphatase 41 Total Protein 6.8 Albumin 4.0 Globulin 2.8 Albumin/Globulin Ratio 1.4 TSH 0.40 Urine Color Yellow Urine Appearance Clear Urine pH 6.0 Ur Specific [place] 1.021 Urine Protein Negative Urine Ketones Trace H Urine Blood 1+ H Urine Nitrate Negative Urine Bilirubin Negative Urine Urobilinogen Positive H Ur Leukocyte Esterase Negative Urine WBC (Auto) Trace(0-5/hpf) Urine RBC (Auto) 3+(>10/hpf) H Urine Bacteria Absent Urine Glucose Negative Salicylates < 2.50 Urine Opiates Screen None detected Acetaminophen < 15 Ur Barbiturates Screen None detected Ur Phencyclidine Scrn None detected Ur Amphetamines Screen None detected U Benzodiazepines Scrn None detected Urine Cocaine Screen None detected U Cannabinoids Screen Presumptive positive H Serum Alcohol < 10 05/24/17 17:05 WBC 11.6 H RBC 4.88 Hgb 15.4 Hct 46 MCV 94 MCH 32 H MCHC 34 RDW 14 Plt Count 237 MPV 8 Neut % (Auto) 77.7 Lymph % (Auto) 14.2 L [place] % (Auto) 6.9 Eos % (Auto) 0.6 Baso % (Auto) 0.6 Absolute Neuts (auto) 9.0 H Absolute Lymphs (auto) 1.7 Absolute Monos (auto) 0.8 Absolute Eos (auto) 0.1 Absolute Basos (auto) 0.1 Absolute Nucleated RBC 0 Nucleated RBC % 0 Sodium Potassium Chloride Carbon Dioxide Anion Gap BUN Creatinine Est GFR ( Amer) Est GFR (Non-Af Amer) BUN/Creatinine Ratio Glucose Calcium Total Bilirubin AST ALT Alkaline Phosphatase Total Protein Albumin Globulin Albumin/Globulin Ratio TSH Urine Color Urine Appearance Urine pH Ur Specific [place] Urine Protein Urine Ketones Urine Blood Urine Nitrate Urine Bilirubin Urine Urobilinogen Ur Leukocyte Esterase Urine WBC (Auto) Urine RBC (Auto) Urine Bacteria Urine Glucose Salicylates Urine Opiates Screen Acetaminophen Ur Barbiturates Screen Ur Phencyclidine Scrn Ur Amphetamines Screen U Benzodiazepines Scrn Urine Cocaine Screen U Cannabinoids Screen Serum Alcohol Discharge Meds: Home Medications Medication Instructions Recorded Confirmed Type Venlafaxine EXT RELEASE CAP* 75 mg PO DAILY #30 cap.sr 05/26/17 Rx [Effexor Xr CAP*] Consultants: none Follow-Up: Appts for within the next 2 weeks scheduled by [facility](psychiatry and counseling). Clear for Discharge: Adequate Clinical Respons, Acceptable Safety Profile Discharge Planning - Discharge Planning Discharge Plan: Outpatient Follow Up Outpatient Program: [facility] Discharge Planning: Prescriptions provided for discharge [x] Yes [] No Follow up care details as per social work arrangements. Patient response to discharge plan: [] eager for discharge [x] agreeable with discharge plan [] ambivalent about discharge [] disagrees with discharge today
== END 2017-05-26 12:17 | disposition home or self-care (01) | DRG 751 ==
LOC: ED 16:05 → BSU 05-25 04:31
PROVIDERS: ADMIT Psychiatry & Neurology Psychiatry; ATTEND Psychiatry & Neurology Psychiatry
DX: F33.2 Major depressive disorder, recurrent severe without psychotic features (principal); R45.851 Suicidal ideations; F79 Unspecified intellectual disabilities; F12.90 Cannabis use, unspecified, uncomplicated; K08.89 Other specified disorders of teeth and supporting structures; F90.9 Attention-deficit hyperactivity disorder, unspecified type; F17.210 Nicotine dependence, cigarettes, uncomplicated; R40.2412 Glasgow coma scale score 13-15, at arrival to emergency department; Z59.0 Homelessness; Z91.14 Patient's other noncompliance with medication regimen; Z91.5 Personal history of self-harm; Z81.8 Family history of other mental and behavioral disorders; Z56.0 Unemployment, unspecified; Z82.49 Family history of ischemic heart disease and other diseases of the circulatory system; Z83.3 Family history of diabetes mellitus
CPT/HCPCS: 36415; 80053; 80307; 80320; 80329; 81003; 81015; 84443; 85025; 93005; 99222; 99238; A9270-GY; G0480

== ENCOUNTER 2017-06-09 15:29 | Inpatient (IN) | payer MEDICAID, OTHER ==
[2017-06-09 16:36] LABS: Hematocrit 45 % (42-52); Hemoglobin 15.4 g/dl (14.0-18.0); Mean Corpuscular HGB Conc 34 g/dl (31-36); Mean Corpuscular Hemoglobin 32 pg (27-31); Mean Corpuscular Volume 94 fL (80-94); Mean Platelet Volume 8 um3 (7.4-10.4); Red Cell Distribution Width 14 % (10.5-15); White Blood Count 9.5 10^3/ul (3.5-10.8)
[2017-06-09 16:50] LABS: ALT 33 U/L (7-52); AST 25 U/L (13-39); Albumin 3.9 g/dL (3.2-5.2); Alkaline Phosphatase 37 U/L (34-104); Anion Gap 7 mmol/L (2-11); BUN/Creatinine Ratio 13.7 (8-20); Blood Urea Nitrogen 14 mg/dL (6-24); CO2 Carbon Dioxide 29 mmol/L (22-32); Calcium 8.6 mg/dL (8.6-10.3); Chloride 101 mmol/L (101-111); EGFR African American 99.8 (>60); EGFR Non-African American 77.6 (>60); Globulin 2.7 g/dL (2-4); Glucose 142 mg/dL (70-100); Potassium 3.6 mmol/L (3.5-5.0); Sodium 137 mmol/L (133-145); Total Protein 6.6 g/dL (6.4-8.9)
[2017-06-09 17:35] LABS: Acetaminophen < 15 mcg/mL; Alcohol < 10 mg/dL (<10); Salicylate < 2.50 mg/dL (<30)
[2017-06-09 17:50] LABS: TSH (Thyroid Stimulating Horm) 0.34 mcIU/mL (0.34-5.60)
[2017-06-09 18:12] LABS: Urine Bacteria Absent (Absent); Urine Bilirubin Negative (Negative); Urine Glucose Negative (Negative); Urine Nitrite Negative (Negative)
[2017-06-09 18:14] LABS: Benzodiazepine Urine Screen None Detected (None Detect)
[2017-06-09] MEDS ORDERED: Acetaminophen TAB* 325 MG PO ONE (19:52)
[2017-06-09] MEDS ORDERED: Al Hydrox/Mg Hydrox/Simet LIQ* 30 ML UDC PO PRN (20:17)
[2017-06-09] MEDS ORDERED: Acetaminophen TAB* 325 MG PO PRN (20:17)
--- NOTE | 2017-06-10 08:02 | ED ---
Evens Aldridge Angela, scribed for Rizwan Velazquez MD on 06/09/17 at 1541 . Psychiatric Complaint - HPI Summary HPI Summary: This pt is a 47 y/o male presenting to [facility] on a 9.45 for SI thoughts and plan for the last 4-5 days. Pt reports he recently broke up with his girlfriend. He notes his plan was to jump off a bridge or run in the middle of traffic. Pt has prior suicide attempts. PMHx includes depression. Pt states he is not taking any anti-depressive medications currently. Pt is a current smoker and admits to smoking marijuana yesterday. He denies alcohol use. - History Of Current Complaint Time Seen by Provider: 06/09/17 15:36 Hx Obtained From: Patient Onset/Duration: Lasting Days, Still Present Timing: Days Character: Depressed Aggravating Factor(s): Recent Stress - recently broke up with his girlfriend Associated Signs And Symptoms: Positive: Confused Related History: Positive For: Prior Psychiatric Issues - depression Has Suicidal: Reports: Thoughts, With A Plan - Allergies/Home Medications Allergies/Adverse Reactions: Allergies Allergy/AdvReac Type Severity Reaction Status Date / Time No Known Allergies Allergy Verified 03/27/17 21:14 PMH/Surg Hx/FS Hx/Imm Hx Endocrine/Hematology History: Denies: Hx Diabetes Cardiovascular History: Denies: Hx Hypertension Sensory History: Denies: Hx Contacts or Glasses, Hx Legally Blind, Hx Deafness, Hx Hearing Aid Opthamlomology History: Denies: Hx Contacts or Glasses, Hx Legally Blind Psychiatric History: Reports: Hx Anxiety, Hx Depression, Hx Inpatient Treatment , Hx Community Mental Health Tx, Hx Bipolar Disorder, Hx Suicide Attempt Denies: Hx Attention Deficit Hyperactivity Disorder, Hx Eating Disorder, Hx Panic Disorder, Hx Post Traumatic Stress Disorder, Hx Schizophrenia, Hx of Violent Episodes Against Others, Hx Substance Abuse - Surgical History Surgery Procedure, Year, and Place: hernia repain, does not remember year - Family History Known Family History: Positive: Cardiac Disease, Diabetes - Social History Alcohol Use: Weekly Substance Use Type: Reports: Marijuana Smoking Status (MU): Current Every Day Smoker Type: Cigarettes Amount Used/How Often: smokes 1 pack per day Review of Systems Negative: Fever, Chills Eyes: Negative ENT: Negative Cardiovascular: Negative Respiratory: Negative Gastrointestinal: Negative Skin: Negative Psychological: Other - SI thoughts and plan Positive: Depressed All Other Systems Reviewed And Are Negative: Yes Physical Exam - Summary Physical Exam Summary: VITAL SIGNS: Reviewed. GENERAL: Patient is a well-developed and nourished male who is lying comfortable in the stretcher. Patient is not in any acute respiratory distress. HEAD AND FACE: No signs of trauma. No ecchymosis, hematomas or skull depressions. No sinus tenderness. EYES: PERRLA, EOMI x 2, No injected conjunctiva, no nystagmus. EARS: Hearing grossly intact. Ear canals and tympanic membranes are within normal limits. MOUTH: Oropharynx within normal limits. NECK: Supple, trachea is midline, no adenopathy, no JVD, no carotid bruit, no c- spine tenderness, neck with full ROM. CHEST: Symmetric, no tenderness at palpation LUNGS: Clear to auscultation bilaterally. No wheezing or crackles. CVS: Regular rate and rhythm, S1 and S2 present, no murmurs or gallops appreciated. ABDOMEN: Soft, non-tender. No signs of distention. No rebound no guarding, and no masses palpated. Bowel sounds are normal. EXTREMITIES: FROM in all major joints, no edema, no cyanosis or clubbing. NEURO: Alert and oriented x 3. No acute neurological deficits. Speech is normal and follows commands. SKIN: Dry and warm PSYCH: Depressed with suicidal thoughts and plan. No tangential speech. Triage Information Reviewed: Yes Vital Signs Reviewed: Yes Diagnostics - Laboratory Result Diagrams: 06/09/17 16:27 06/09/17 16:27 Lab Statement: Any lab studies that have been ordered have been reviewed, and results considered in the medical decision making process. Course/Dx - Course Assessment/Plan: This pt is a 47 y/o male presenting to [facility] on a 9.45 for SI thoughts and plan for the last 4-5 days. Pt reports he recently broke up with his girlfriend. He notes his plan was to jump off a bridge or run in the middle of traffic. Pt has prior suicide attempts. PMHx includes depression. Pt states he is not taking any anti-depressive medications currently. Pt is a current smoker and admits to smoking marijuana yesterday. He denies alcohol use. Test resutls without any significant abnormalities. Pt is medically cleared. Pt is waiting for [facility]. He will be signed out to the next ER attending to follow up with recommendations from [facility]. - Differential Dx/Clinical Impression Provider Diagnosis: Suicidal ideation Discharge - Discharge Plan Condition: Stable Disposition: OTHER Discharge Disposition Comment: signed out to the next ER attending, pending dispo, awaiting [facility] Referrals: No Primary Care Phys,NOPCP [Primary Care Provider] - The documentation as recorded by the Evens goldstein Angela accurately reflects the service I personally performed and the decisions made by me, Rizwan Velazquez MD.
[2017-06-10] MEDS: Venlafaxine EXT RELEASE CAP* 75 MG PO SCH (13:05)
[2017-06-10] MEDS: Vitamin THERAPEUTIC TAB PO SCH (13:05)
--- NOTE | 2017-06-10 19:07 | HP ---
HISTORY AND PHYSICAL: DATE OF ADMISSION: 06/09/17 IDENTIFYING DATA: Mr. Davis is a 47-year-old single, homeless, unemployed, male, who was brought in by ambulance from [facility] and he was admitted on voluntary status. CHIEF COMPLAINT: "I just can't stop thinking about my ex-girlfriend." HISTORY OF PRESENT ILLNESS: The patient was recently admitted here from to 05/26/17 in similar circumstances where he felt suicidal with various plans. He recovered quickly in inpatient unit, was discharged with referral to [facility], which he did not followup with until yesterday when he went to the clinic for an intake and during the intake admitted that he was extremely distressed over breakup of relationship with his girlfriend of 3 months and that he was considering ending his life by jumping in front of traffic. He was therefore transported here for mental evaluation. He endorse since breakup about 2 weeks ago, symptoms of depressed mood, poor sleep, recurrent thoughts of suicide and feelings of guilt, hopelessness, and worthlessness. Since the patient was staying with his girlfriend and her children; he also became homeless when they broke up and he says he had been sleeping outside and walking the streets all day. 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 The patient today requests discharge from the hospital rather forcefully, He threatens to become agitated and to break things and to make it unbearable for the patients if his request is not granted. The patient now denies that he ever felt suicidal. He comments out loud that "he knew it was a bad idea to coming to the hospital." REVIEW OF PSYCHIATRIC SYMPTOMS: He denies symptoms of brandon or psychosis. He denies problems with anxiety, panic attacks, obsessive thoughts, compulsive rituals The patient was classified intellectually disabled at school. PAST PSYCHIATRIC HISTORY: He is is not currently connected with outpatient care. He has a history of non-adherence with taking prescribed medication and with keeping clinic appointments. His most recent attempt was yesterday at [facility] where he went for an intake and this led to him being referred to the emergency room of this hospital. SUICIDE/HOMICIDE HISTORY: He reports having attempted suicide at least 4 times previously. The most recent attempt was in January 2017 when he drank bleach because he was distressed. over the suicide of his brother. TRAUMA/ABUSE HISTORY: The patient reports that he was bullied when he was in school because of his intellectual disability. He denies symptoms of PTSD. PAST MEDICAL HISTORY: He denies any active medical problem, any history of head trauma with loss of consciousness, seizures, or surgeries. ALLERGIES: No known drug allergies. REVIEW OF MEDICAL SYMPTOMS: Negative. FAMILY HISTORY: His brother completed suicide. PERSONAL AND SOCIAL HISTORY: This 47-year-old male who is currently homeless and unemployed. He was born and raised in [place], [place] by his mother and stepfather. He has one full sibling, a brother who committed suicide in the context of heroin addiction. The patient reports that he was close to the brother. He is educated to the 10th grade, was in special education because of mild intellectual disability. He is currently unemployed. Breakup of relationship with girlfriend led to homelessness. He denies having any access to firearms. 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 MENTAL STATUS EXAMINATION: Finds a 47-year-old white male who looks older than his stated age. He is poorly groomed, unshaved with some body odor, dressed in hospital scrubs. He presents as rather irritable, threatening at times. He exhibits some degree of psychomotor retardation. No abnormal movements are observed. Speech is loud at times, but not pressured. His mood is angry. His insight and judgment are limited. Impulse control is tenuous. He is alert. He is oriented to time, place, person. Attention, memory, and concentration are all fair. Fund of knowledge is adequate and intelligence is known to be in mildly intellectually disabled range. PHYSICAL EXAMINATION GENERAL: He is an averagely built 47-year-old white male who does not appear to be in any acute physical distress. He is alert, oriented x3. ADMISSION VITAL SIGNS: Blood pressure is 140/62, pulse 107, respirations 17, temperature 98.9. HEENT: Head: Atraumatic, normocephalic, symmetrical. Eyes: PERRLA. Tympanic membrane intact. Sclerae nonicteric. Conjunctivae clear. NECK: Trachea midline, freely mobile. No cervical lymphadenopathy. No nuchal rigidity. LUNGS: Clear to auscultation bilaterally. HEART: Regular rate and rhythm. S1, S2. No murmur, gallops, or rubs. BREAST EXAM: No mass or discharge. ABDOMEN: Soft, nontender. No masses, organomegaly, or rebound tenderness. Active bowel sounds in all 4 quadrants. EXTREMITIES: No clubbing, cyanosis, edema, or varicosities noted. Pulses are equal and adequate in all four extremities. NEUROLOGIC: Cranial nerves II through XII are intact. Cerebellar function is intact. Muscle strength grade 5/5 in all 4 extremities. STRUCTURAL EXAM: The patient examined in both supine and upright positions. No gross AP or lateral asymmetry. Gait and movement are within normal limits. SKIN: Skin texture, turgor, and pigmentation are within normal limits. LABORATORY DATA: On admission, the patient's CBC shows MCH of 32, lymph percentage of 15.1. Complete metabolic panel within normal limits. Urinalysis shows specific gravity of 1.032, 1+ protein, trace of ketones, positive urobilinogen, and presence of hyaline cast. Toxicology screen is positive for cannabis. SUBSTANCE ABUSE HISTORY: The patient reports having been sober since last March. He has been trying to curb his marijuana use since he was last discharged here, he asserts that he last used about 2 days ago. He denies the use of any other illicit substances. SUMMARY: A 47-year-old man with history of previous suicide attempts, substance abuse, non-adherence to outpatient psychiatric treatment, who was referred from [facility] where he went for an intake and disclosed that he was depressed and had thoughts of suicide and a plan to jump in front of traffic. His medical history is unremarkable. There is family history of completed suicide in his brother. The patient describes stresses of breakup with girlfriend, unemployment, homelessness, and lack of occupational and social supports. DIAGNOSTIC IMPRESSIONS: 1. Adjustment disorder with depressed mood. 2. Major depressive disorder, recurrent, severe, without psychotic features, by history. 3. Cannabis abuse. 4. Rule out cannabis use disorder. 5. Mild intellectual disability. TREATMENT PLAN: Admit to mental health unit, 15-minute checks, full code status. Legal status is voluntary. Initiate compressive milieu, individual and group psychotherapeutic supports. The patient is not interested in trial of medications at this time. Discharge planning will involve coordination of his aftercare with [facility] after he has been observed for at least 72 hours and he is felt to be safe for discharge. [id number]/[facility] #: [id number] JEREMY
[2017-06-11] MEDS: Vitamin THERAPEUTIC TAB PO SCH (09:32)
[2017-06-11] MEDS: Venlafaxine EXT RELEASE CAP* 75 MG PO SCH (09:33)
[2017-06-11] MEDS ORDERED: Nicotine Inhaler* 10 MG AMP INH PRN (21:31)
[2017-06-11] MEDS ORDERED: Nicotine GUM* 2 MG PO PRN (21:31)
[2017-06-11] MEDS ORDERED: Mouth Piece, Nicotine* 1 EACH CARTRIDGE INH SCH (21:31)
[2017-06-12 07:59] VITALS: BP 146/99
[2017-06-12] MEDS: Vitamin THERAPEUTIC TAB PO SCH (09:58)
[2017-06-12] MEDS: Venlafaxine EXT RELEASE CAP* 75 MG PO SCH (09:58)
--- NOTE | 2017-06-12 15:22 | DS ---
Subjective - Subjective Service Types: [address] [facility] complex over 30 min Discharge Date: 06/12/17 Subjective: DISCHARGE SUMMARY Date of Admission: 06/09/17 Date of Discharge: 06/12/17 Discharge Diagnosis: Mood Disorder unspecified Adjustment Disorder with depression mild Intellectual Disability Cannabis Use Disorder. Condition at time of Discharge: Improved Mental Status at time of Discharge: on discharge patient was well related, made good eye contact and answered questions appropriately in a linear fashion. speech was normal rate and volume. He was not pressured or dysarthric He showed normal psychomotor behavior. Mood was somewhat anxious, mildly dysphoric but no evidence of brandon. affect: was constricted. Thought process was goal directed and coherent patient denied suicidal or homicidal ideation. he also denied perceptual disturbances, delusons or paranoia. He was alert and oriented in all spheres. There were no expressive or receptive language deficits. concentration, short and usp memories were somewhat impaired. insight is poor. judgment is limited due to patient's intellectual impairments. Reason for Admission: The patient was recently admitted here from 05/25/17 to 05/26/17 in similar circumstances where he felt suicidal with various plans. He recovered quickly in inpatient unit, was discharged with referral to [facility], which he did not followup with until yesterday when he went to the clinic for an intake and during the intake admitted that he was extremely distressed over breakup of relationship with his girlfriend of 3 months and that he was considering ending his life by jumping in front of traffic. He was therefore transported here for mental evaluation. He endorse since breakup about 2 weeks ago, symptoms of depressed mood, poor sleep, recurrent thoughts of suicide and feelings of guilt, hopelessness, and worthlessness. Since the patient was staying with his girlfriend and her children; he also became homeless when they broke up and he says he had been sleeping outside and walking the streets all day. He has been working with department of social media content specialist and he is he is reportedly close to securing his own housing. The patient today requests discharge from the hospital rather forcefully, He threatens to become agitated and to break things and to make it unbearable for the patients if his request is not granted. The patient now denies that he ever felt suicidal. He comments out loud that "he knew it was a bad idea to coming to the hospital." REVIEW OF PSYCHIATRIC SYMPTOMS: He denies symptoms of brandon or psychosis. He denies problems with anxiety, panic attacks, obsessive thoughts, compulsive rituals The patient was classified intellectually disabled at school. PAST PSYCHIATRIC HISTORY: He is is not currently connected with outpatient care. He has a history of non- adherence with taking prescribed medication and with keeping clinic appointments. His most recent attempt was yesterday at [facility] where he went for an intake and this led to him being referred to the emergency room of this hospital. SUICIDE/HOMICIDE HISTORY: He reports having attempted suicide at least 4 times previously. The most recent attempt was in January 2017 when he drank bleach because he was distressed. over the suicide of his brother. TRAUMA/ABUSE HISTORY: The patient reports that he was bullied when he was in school because of his intellectual disability. He denies symptoms of PTSD. PAST MEDICAL HISTORY: He denies any active medical problem, any history of head trauma with loss of consciousness, seizures, or surgeries. ALLERGIES: No known drug allergies. History & Physical NIRALI ALEX [id number] 06/09/17 FAMILY HISTORY: His brother completed suicide. PERSONAL AND SOCIAL HISTORY: This 47-year-old male who is currently homeless and unemployed. He was born and raised in [place], [place] by his mother and stepfather. He has one full sibling, a brother who committed suicide in the context of heroin addiction. The patient reports that he was close to the brother. He is educated to the 10th grade, was in special education because of mild intellectual disability. He is currently unemployed. Breakup of relationship with girlfriend led to homelessness. He denies having any access to firearms. He reports that he is working with the department of social media content specialist on getting entitlements such as housing and SSI. PHYSICAL EXAMINATION on admission GENERAL: He is an averagely built 47-year-old white male who does not appear to be in any acute physical distress. He is alert, oriented x3. ADMISSION VITAL SIGNS: Blood pressure is 140/62, pulse 107, respirations 17, temperature 98.9. HEENT: Head: Atraumatic, normocephalic, symmetrical. Eyes: PERRLA. Tympanic membrane intact. Sclerae nonicteric. Conjunctivae clear. NECK: Trachea midline, freely mobile. No cervical lymphadenopathy. No nuchal rigidity. LUNGS: Clear to auscultation bilaterally. HEART: Regular rate and rhythm. S1, S2. No murmur, gallops, or rubs. BREAST EXAM: No mass or discharge. ABDOMEN: Soft, nontender. No masses, organomegaly, or rebound tenderness. Active bowel sounds in all 4 quadrants. EXTREMITIES: No clubbing, cyanosis, edema, or varicosities noted. Pulses are equal and adequate in all four extremities. NEUROLOGIC: Cranial nerves II through XII are intact. Cerebellar function is intact. Muscle strength grade 5/5 in all 4 extremities. STRUCTURAL EXAM: The patient examined in both supine and upright positions. No gross AP or lateral asymmetry. Gait and movement are within normal limits. SKIN: Skin texture, turgor, and pigmentation are within normal limits. LABORATORY DATA: On admission, the patient's CBC shows MCH of 32, lymph percentage of 15.1. Complete metabolic panel within normal limits. Urinalysis shows specific gravity of 1.032, 1+ protein, trace of ketones, positive urobilinogen, and presence of hyaline cast. Toxicology screen is positive for cannabis. SUBSTANCE ABUSE HISTORY: The patient reports having been sober since last March. He has been trying to curb his marijuana use since he was last discharged here, he asserts that he last used about 2 days ago. He denies the use of any other illicit substances. 2 of 3 Hospital Course: Patient was admitted to [facility] on involuntary basis and placed on q 15 min level of observation patient was integrated into the milieu and was afforded individiual and group therapies. patient was cooperative with staff, complied with unit rules, respectful of other patients on the unit. There were no behavioral management issues. patient attended groups. Patient did not show himself to be in distress during his 3 day hospital stay. He was not isolative, had adequate energy, completed his ADL's appropriately, and had good food and fluid intake. Staff saw no evidence of psychotic or disorganized behaviors and patient did not communicate any suicidal ideation, intent or plan during his stay. During exit interview, patient revealed that he felt that he was not coping well with break up from girlfriend. He admitted that this led him to say things impulsively which he really didn't mean including making suicidal statement. Patient reported he felt safe for discharge. Although he is currently homeless , he reported he has been living in local homeless detention and planned to return there today by bus (pass provided by hospital). He agreed to continue taking Effexor XR 75 mg for depression which is a new medication for him. He told me that he doesn't normally like to take medications but that he would give it a try. he also had plans to follow up with a case filler who is [place] to help him secure permanent housing. Discharge Instructions to patient: Medications: Effexor XR 75 mg QAM Diet Regular Activities: As tolerated Tobacco Cessation: patient recommended to quit smoking. He declined smoking cessation referral Follow Up Care: at [facility]. Appointment to seeDr. Sullivan for medication management and his therapist was arranged for patient by social media content specialist. Discharge Planning - Discharge Planning Discharge Planning: Prescriptions provided for discharge [X] Yes [] No Follow up care details as per social work arrangements. Patient response to discharge plan: [X] eager for discharge [] agreeable with discharge plan [] ambivalent about discharge [] disagrees with discharge today
== END 2017-06-12 13:37 | DRG 753 ==
LOC: ED 15:29 → BSU 21:46
PROVIDERS: ADMIT Psychiatry & Neurology Psychiatry; ATTEND Psychiatry & Neurology Psychiatry
DX: F39 Unspecified mood [affective] disorder (principal); F70 Mild intellectual disabilities; R45.851 Suicidal ideations; F43.21 Adjustment disorder with depressed mood; F12.10 Cannabis abuse, uncomplicated; Z81.8 Family history of other mental and behavioral disorders
CPT/HCPCS: 36415; 80053; 80307; 80320; 80329; 81003; 81015; 84443; 85025; 99222; A9270-GY; G0480